=== PATIENT | male | born 1965 ===

== ENCOUNTER 2017-06-29 13:33 | Outpatient (CLI) | payer OTHER ==
[~2017-06-29 13:33] MED LIST: ATACAND32 MG; ATACAND32 MG PO; ATORVASTATIN CA10 MG; ATORVASTATIN CA10 MG PO; CLONAZEPAM1 MG; CLONAZEPAM1 MG PO
== END 2017-06-29 13:39 | disposition home or self-care (01) ==
LOC: RAD 13:33
DX: S22.49XA Multiple fractures of ribs, unspecified side, initial encounter for closed fracture (principal)